=== PATIENT | female | born 2000 | race African-American/Black ===

== ENCOUNTER 2023-06-25 21:49 | Emergency (ER) | payer OTHER ==
[2023-06-25] MEDS ORDERED: Morphine 4 MG/ML VIAL ONE (23:06)
[2023-06-25] MEDS ORDERED: Ondansetron PF 4 MG/2 ML Vial ONE (23:11)
== END 2023-06-26 00:41 | disposition home or self-care (01) ==
LOC: CSHERS 21:49
DX: O98.511 Other viral diseases complicating pregnancy, first trimester (principal); U07.1 COVID-19; O46.91 Antepartum hemorrhage, unspecified, first trimester; O99.331 Smoking (tobacco) complicating pregnancy, first trimester; F17.210 Nicotine dependence, cigarettes, uncomplicated; Z3A.08 8 weeks gestation of pregnancy
CPT/HCPCS: 76801; 76856; 84702; 86900; 86901; 96374; 96375; J2270; J2405